=== PATIENT | male | born 1945 | race Caucasian/White ===

== ENCOUNTER → 2016-09-22 | Day surgery (SDC) | payer MEDICARE ==
[~2016-09-22] MED LIST: BUPIVACAINE/EPINEPHRINE 0.25% PF 30 ML VIAL ONE; LACTATED RINGER'S 1000 ML INJ 1,000 ML ONE; MORPHINE SULFATE 4 MG/ML INJ ONE; ONDANSETRON HCL 4 MG/2 ML VIAL IV PUSH ONE; PROPOFOL 200 MG/20 ML AMP IV ONE; ceFAZolin 2 GM PREMIX 50 ML ONE
--- NOTE | 2016-09-22 11:27 | TN ---
cc: HAYDER WILLS M.D. DATE OF SURGERY: 09/22/2016 PREOPERATIVE DIAGNOSIS 1. Symptomatic bilateral inguinal hernias. 2. Umbilical hernia. POSTOPERATIVE DIAGNOSES 1. Bilateral indirect inguinal hernias. 2. Umbilical hernia. PROCEDURE 1. Laparoscopic repair bilateral inguinal hernias with mesh. 2. Open repair umbilical hernia with mesh. SURGEON Dr. Hayder Wills ANESTHESIA General. INDICATIONS This is a very pleasant 70-year-old gentleman who was sent to me in consultation by Dr. Jerrell Perez for evaluation of bilateral inguinal hernias. He has at least an eight-month history of bilateral inguinal hernias that started to occasionally burn. He developed gradual breakdown of his body. He has an incidentally discovered umbilical hernia. He is interested in operative repair of his hernias. INTRAOPERATIVE FINDINGS Large chronic bilateral indirect inguinal hernias with large indirect inguinal hernia defects. About 3 cm umbilical hernia. ESTIMATED BLOOD LOSS Less than 10 mL. DESCRIPTION OF PROCEDURE IN DETAIL The patient was identified as Eduardo Kam, taken to the operating room and placed in the supine position. Sequential compression devices were placed on bilateral lower extremities. Following induction of adequate general anesthesia the patient's abdomen was prepped and draped in the usual sterile fashion with Betadine. A timeout procedure was performed. Following completion of the timeout procedure to everyone's satisfaction within the room 0.25% Marcaine with epinephrine was placed in and around the umbilicus and at the proposed incision sites. An infraumbilical about 3-4 cm transverse incision was carried out with a scalpel and dissection continued posteriorly. Hemostasis was controlled with electrocautery. The base of the umbilicus was released from the herniated preperitoneal fatty tissue using a combination of blunt and sharp dissection. The anterior fascia was circumferentially cleared with electrocautery. The anterior rectus fascia on the left side was identified and incised at its medial border and the underlying muscle swept superiorly and laterally allowing for development of a preperitoneal plane. With the patient in slight Trendelenburg position a preperitoneal dissecting balloon was placed in the preperitoneal space and under direct laparoscopic view inflated to a total of approximately 35 pumps. This allowed for identification of the pubic symphysis, bilateral Paras's ligaments and inferior epigastric vessels. The wound was desufflated and removed and a structural balloon trocar placed in the preperitoneal space, its balloon inflated with CO2 insufflation until a level of 11 mmHg ensued. Two infraumbilical midline 5 mm trocars were placed in preperitoneal space under direct laparoscopic view after incision of the skin with a scalpel. The inferior epigastric vessels were immediately identified and they were kind of hanging downward. They were retracted superiorly and blunt dissection was used with blunt graspers to develop lateral dissection. Posterior to the spermatic cord dissection was performed using the blunt graspers. There was an obvious large chronic indirect inguinal hernia sac which was systematically and gradually reduced from the inguinal canal to the base of the spermatic cord. This took some time due to the chronic nature of the hernia sac and the large amount of chronic scarred attachments. No defect in the sac was created. The sac was completely reduced from the inguinal canal. Photograph was taken of the indirect inguinal hernia defect. A 4 x 6 inch piece of ProLite mesh cut from a 6 x 6 inch piece was cut with an anterolateral slit and placed around the spermatic cord and tacked into position with the ProTack device. Tacks were placed to approximate the anterolateral slit and on the anterior border of Paras's ligament and the superomedial border of the mesh. A 2 x 6 inch piece of the mesh was then placed across the anterolateral slit and held in position at Paras's ligament and the superolateral border of the mesh as well as one tack placed just medial from the inferior epigastric vessels. This broadly covered the hernia defect and photograph was taken of the completed repair. Attention was turned to the right side. Very symmetric findings were identified. There was a large chronic indirect inguinal hernia sac which was reduced from the inguinal canal to the base of the spermatic cord. Again, a 4 x 6 inch piece of the ProLite mesh was cut with an anterolateral slit placed surrounding the spermatic cord and tacked into position as was done on the left side. Similarly a 2 x 6 inch piece of the ProLite mesh was placed across the anterolateral slit and held in position with Pro tacks. Care was taken to avoid tack placement inferolaterally to avoid cutaneous nerve injury. Photographs were taken of the completed repair. The remaining local anesthetic was placed in the preperitoneal space. The trocars were removed under direct visualization. A grasper was used to hold the inferolateral portion of the mesh against the abdominal wall as the peritoneum lay on top of it. The anterior rectus fascial incision was closed with running 2-0 Vicryl suture. The umbilical hernia defect was primarily approximated with interrupted and inverted 0 Prolene sutures. A piece of mesh about 6 x 6 cm in size was cut from a 3 x 6 inch mesh and placed in an onlay position over the umbilical hernia defect. It was held in position in eight places with 0 Ethibond sutures. This broadly covered the defect and reinforced the primary repair. Irrigation ensued. There was no evidence of bleeding in this space. The umbilicus was reformed with interrupted 2-0 Vicryl sutures. 2-0 Vicryl was placed in the subcutaneous tissue and the skin was approximated with running 4-0 Monocryl subcuticular suture at all three trocar sites. Dressings were applied with Mastisol and half-inch brown Steri-Strips. Gauze and Tegaderm were placed over the umbilicus. The patient tolerated the procedure without apparent complication. Sponge, needle and instrument counts were correct at the end of the case. MD TRISTAN Medel/ANGELA /11:00 AM /11:11 AM
== END | disposition home or self-care (01) ==
LOC: ESDC 07:34
PROVIDERS: ATTEND Surgery Trauma Surgery
DX: K40.20 Bilateral inguinal hernia, without obstruction or gangrene, not specified as recurrent (principal); K42.9 Umbilical hernia without obstruction or gangrene; E11.9 Type 2 diabetes mellitus without complications; Z79.4 Long term (current) use of insulin
CPT/HCPCS: 00750; 00840; 49585; 49650; 82948; C1727; C1781; J0690; J2270; J2405; J3010; J7120